=== PATIENT | male | born 1965 | race Caucasian/White ===

== ENCOUNTER 2017-03-30 07:39 | Day surgery (SDC) | payer OTHER ==
[2017-03-30] MEDS ORDERED: Lidocaine 1% 50 ML MDV ONE (07:47)
[2017-03-30] MEDS ORDERED: Bupivacaine 0.5%/EPINEPHrine 1:200,000 50 ML MDV ONE (07:47)
[2017-03-30] MEDS ORDERED: Dextrose 5%-Lactated Ringers 1,000 ML IV SCH (08:30)
[2017-03-30] MEDS ORDERED: Midazolam 1 MG/ML 2 ML SDV ONE (08:33)
[2017-03-30] MEDS ORDERED: Propofol 200 MG/20 ML SDV ONE ×3 (08:33→12:32)
[2017-03-30] MEDS ORDERED: fentaNYL 100 MCG/2 ML SDV ONE (08:33)
[2017-03-30] MEDS ORDERED: ceFAZolin 2 GM in Sodium Chloride 0.9% 50 ML IV ONE (09:30)
[2017-03-30] MEDS ORDERED: Lactated Ringers 1,000 ML ONE (12:40)
[2017-03-30] MEDS ORDERED: Ketorolac 60 MG/2 ML SDV ONE (12:43)
[2017-03-30] MEDS ORDERED: Acetaminophen/oxyCODONE 325-5 MG Tab PO ONE (14:50)
[2017-03-30 15:26] VITALS: BP 117/80
--- NOTE | 2017-04-05 10:46 | OR ---
DATE OF PROCEDURE: 03/30/2017 PREOPERATIVE DIAGNOSIS: Incarcerated left inguinal hernia. POSTOPERATIVE DIAGNOSES: 1. Incarcerated left femoral hernia. 2. Incarcerated direct left inguinal hernia. 3. 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 PROCEDURE: Exploration of left inguinal hernia with: 1. Repair of incarcerated left femoral hernia with mesh (05554). 2. Repair of incarcerated direct inguinal hernia with mesh (17008). 3. Division of left ilioinguinal nerve (13485). ANESTHESIA: Local plus IV sedation. [employer]: REDE Andrew. INDICATION FOR PROCEDURE: This is a 51-year-old presenting with an incarcerated hernia in the left inguinal area. The plan is to proceed with exploration with repair as indicated with a mesh technique planned. He is made aware preoperatively that if the ilioinguinal nerve looks like it will be at risk for entrapment by scarring in the postoperative period this would result in chronic pain. That would probably result in an area of cutaneous anesthesia in the area around and below the incision. Potential risks were reviewed and the patient wishes to proceed. DETAILS OF PROCEDURE: The patient was taken to the operating room and placed in a supine position. After IV sedation was administered, the left ilioinguinal nerve and area around the inguinal incision were anesthetized with 1% lidocaine mixed with Marcaine, a standard inguinal incision was then made and carried down through the skin and subcutaneous tissue and through the external oblique aponeurosis. As one entered that area, the patient was noted to have a small direct hernia, which had some incarcerated omentum within it. This was initially reduced and inspection of the cord structures showed no indirect hernia. Below the inguinal ligament the patient had a large mass. This was in fact what was being palpated preoperatively. As this was dissected free this was clearly an incarcerated femoral hernia. Even with enlargement of the femoral hernia defect as it passed underneath the inguinal ligament, this could not be removed. This area was then excised and appeared to contain some bladder type fat but no viscera per se. A large mesh plug was then placed into the femoral hernia defect, this was affixed posteriorly to the Bi's ligament and then to the underside of the inguinal ligament medially, anteriorly, and laterally with horizontal mattress sutures of 3-0 Vicryl stitch. A primary closure of the inguinal ligament down to the Bi's ligament with a figure-of- eight stitch; a 4-0 Vicryl stitch was then also placed. The direct hernia was then repaired with placement of the medium plug into that defect. This was fixed circumferentially to the underside of the mesh with horizontal mattress sutures of 3-0 Vicryl stitch as well. At that point, no further problems noted. The flat portion of the mesh plug system was placed along the inguinal floor and sutured lateral to the cord structures with a 3-0 Vicryl stitch. The flat portion of the mesh was placed over that and the external oblique aponeurosis approximated with some 4-0 Vicryl stitch and the skin with 4-0 Vicryl subcuticular stitch. Prior to placement of the flat portion of the mesh, the ilioinguinal nerve was noted to be likely to pass directly underneath the mesh and be at risk for chronic pain associated with the inflammatory response of scar around the mesh. Given this, the ilioinguinal nerve was divided and traced out laterally to the lateral most part of incision, it was once again divided and sent as a separate specimen. Closure was then as noted above and the patient was taken to the recovery room in satisfactory condition. Andrew Avilez MD /[id number]
== END 2017-03-30 15:55 | disposition home or self-care (01) ==
LOC: JP.SDS 07:39
PROVIDERS: ATTEND Surgery
DX: K40.30 Unilateral inguinal hernia, with obstruction, without gangrene, not specified as recurrent (principal); K41.30 Unilateral femoral hernia, with obstruction, without gangrene, not specified as recurrent; G57.82 Other specified mononeuropathies of left lower limb
CPT/HCPCS: 49507; 49553; 64772; A9270; C1781; J0690; J1885; J2250; J2704; J3010; J7042; J7050; J7120; 88302